=== PATIENT | female | born 1975 | race Caucasian/White ===

== ENCOUNTER 2016-10-29 12:56 | Emergency (ER) | payer SELFPAY ==
[2016-10-29 13:14] LABS: Bilirubin Negative (Negative); Blood, Urine Negative (Negative); Glucose, Urine (Dipstick) Negative (Negative); Ketone, Urine Negative (Negative); Nitrite Negative (Negative); Protein, Urine (Dipstick) Negative (Neg-Trace); Urobilinogen 0.2 mg/dL (0.2-1.0)
[2016-10-29 13:20] LABS: Bacteria/HPF Rare-Few HPF (None Seen); Hyaline Casts/LPF NONE SEEN LPF (0-3 Hyaline); Oval Fat Bodies/HPF None Seen HPF (None Seen); RBC/HPF None Seen HPF (0-3); Renal Epithelial None Seen HPF (0-3); Sperm/HPF None Seen HPF (None Seen); Squamous Epithelial 0-3 HPF (0-3); Transitional Epithelial NONE SEEN HPF (0-3); Trichomonas/HPF Rare HPF (None Seen); Yeast-All Forms None Seen HPF (None Seen)
[2016-10-29 13:57] LABS: ALT (SGPT) 7 U/L (0-55); AST (SGOT) 11 U/L (5-34); Alkaline Phosphatase 59 U/L (40-150); Anion Gap 12 mmol/L (10-20); BUN (Urea Nitrogen) 9 mg/dL (7.0-18.7); Bilirubin, Total 0.2 mg/dL (0.2-1.2); Calc. Creatinine Clearance 0 mL/min (70-130); Calcium 9.5 mg/dL (7.8-10.44); Carbon Dioxide 24 mmol/L (22-29); Chloride 108 mmol/L (98-107); Estimated GFR-MDRD 83; Globulin 3.2 g/dL (2.4-3.5); Lipase 17 U/L (8-78); Protein, Total 7.5 g/dL (6.0-8.3)
[2016-10-29 14:01] LABS: Band 2 % (5-11); Hematocrit 38.7 % (36.0-47.0); Mean Platelet Volume 7.2 fL (7.4-10.4); Neutrophil 62 % (42-75); Red Blood Cell (RBC) Count 4.26 mill/uL (4.20-5.40); White Blood Cell (WBC) Count 6.7 thou/uL (4.8-10.8)
--- NOTE | 2016-10-29 14:14 | PICIS ---
[facility] EMERGENCY RECORD TRIAGE (13:01 KMOR) TRIAGE NOTES: Right sided pain started yesterday and getting worse. (13:01 KMOR) PATIENT: NAME: Jimena Calle, AGE: 41, GENDER: female, : Mon 1975, TIME OF GREET: Sun Oct 29, 2016 12:56, PREFERRED LANGUAGE: Kinyarwanda, ETHNICITY: Not or , HIGH ALERT: HIGH ALERT 3, ECODE BILLING MAP: [facility], SSN: [id number], Zip Code: [address], KG WEIGHT: 68.04, PHONE: , , , PERSON ID: [id number], PAYMENT: SJX Self Pay, PCP: none. (13:01 KMOR) COMPLAINT: Abdominal Pain. (13:01 KMOR) ADMISSION: URGENCY: 3 Urgent, ADMISSION SOURCE: Home, TRANSPORT: CAR, BED: ER -03. (13:01 KMOR) ASSESSMENT: Assessment: A&OX4. RR EVEN AND UNLABORED., Symptoms began yesterday. (13:03 KMOR) PAIN: Patient complains of pain described as, sharp, on a scale 0-10 patient rates pain as 7, Location RLQ. (13:03 KMOR) IMMUNIZATIONS: Flu vaccine not up to date, Tetanus immunization up to date, Pneumococcal vaccine not up to date. (13:03 KMOR) TRIAGE SCREENING: Patient denies suicidal ideation, Patient denies presence of domestic violence. (13:03 KMOR) LMP: Last menstrual period: 10/26/2016. (13:03 KMOR) TREATMENTS IN PROGRESS: Medications Given, NONE. (13:03 KMOR) PROVIDERS: TRIAGE NURSE: Pily Johnson RN. (13:01 KMOR) PREVIOUS VISIT ALLERGIES: No Known Drug Allergies. (13:01 KMOR) No Known Drug Allergies. (13:03 KMOR) KNOWN ALLERGIES No Known Drug Allergies CURRENT MEDICATIONS (13:01 KMOR) None VITAL SIGNS VITAL SIGNS: BP: 116/86, Pulse: 97, Resp: 16, Temp: 97.7 (Oral), Pain: 7, O2 sat: 100 on Room Air, Time: 10/29/2016 13:03. (13:03 KMOR) BP: 120/74, Pulse: 80, Resp: 16, Temp: 97.7, Pain: 5, O2 sat: 100 on ra, Time: 10/29/2016 14:16. (14:16 KMOR) NURSING ASSESSMENT: ABDOMEN (13:20 KMOR) CONSTITUTIONAL: Patient arrives ambulatory, Gait steady, History obtained from patient, Patient appears, in distress due to pain, Patient cooperative, Patient alert, Oriented to person, place and time, Skin warm, Skin dry, Skin normal in color, Mucous membranes pink, Mucous membranes moist, Patient is well-groomed, Patient complains of Abdominal pain, Right sided abdominal pain started today, reports pain radiating to back. reports history of gall stones. &a-1R&a+25V*p+0X*u9222T*c202B*c15G*c2P*p-0X&a-25V&a+1R Name: Jimena Calle : 1975 F41 MedRec: [id number] AcctNum: [id number] Prepared: Gabi Oct 29, 2016 14:31 by Interface Page 1 of 7 pMD [facility] EMERGENCY RECORD PAIN: sharp pain, shooting pain, stabbing pain, to the right upper quadrant, Pain radiates, to the right flank, on a scale 0-10 patient rates pain as 7. ABDOMEN: Abdomen assessment findings include abdomen symmetrical, Abdomen soft, tender, to the right upper quadrant, Bowel sound normal, Associated with nausea, no associated vomiting, no associated diarrhea, no associated constipation, Date of last bowel movement: 10/29/2016. LMP: First day last menstrual period, Last period started on 10/22/2016 13:40. GENITOURINARY FEMALE: no associated urinary complaints. NOTES: Patient tolerated procedure well. NURSING PROCEDURE: DISCHARGE NOTE (14:16 KMOR) DISCHARGE: Patient discharged to home, ambulating without assistance, family driving, accompanied by other family member, Summary of Care printed/ provided, Transition record given to patient, Discharge instructions given to patient, Simple or moderate discharge teaching performed, by SASCHA Nascimento, Discharge instructions and follow up reviewed with patient. Pt ambulatory to discharge desk., Above person(s) verbalized understanding of discharge instructions and follow-up care, Patient instructed not to drive home. BELONGINGS: Belongings remain with patient, Valuables remain with patient. VITAL SIGNS: BP: 120, / 74, Pulse: 80, Resp: 16, Temp: 97.7, Pain: 5, O2 sat: 100, on: ra, Time: 1415. NURSING PROCEDURE: IV PATIENT IDENITIFIER: Patient actively involved in identification process, Patient's identity verified by patient stating name, Patient's identity verified by patient stating date. (13:30 KMOR) IV SITE 1: IV therapy indicated for hydration, IV therapy indicated for medication administration, IV established, to the right antecubital, using a 20 gauge catheter, in one attempt, Saline lock established, Flushed with normal saline (mls): 10cc, Labs drawn at time of placement, labeled in the presence of the patient and sent to lab. (13:30 KMOR) FOLLOW-UP SITE 1: After procedure, 2x3 ensure dressing applied, After procedure, no drainage at IV site, After procedure, no swelling at IV site, After procedure, no redness at IV site. (13:30 KMOR) IV discontinued, due to patient being discharged, catheter intact. (14:12 KMOR) NOTES: Patient tolerated procedure well. (13:30 KMOR) Patient tolerated procedure well. (14:12 KMOR) NURSING PROCEDURE: NURSE NOTES (13:54 KMOR) NURSES NOTES: Patient assisted to bathroom with steady gait. &a-1R&a+25V*p+0X*f9119A*c202B*c15G*c2P*p-0X&a-25V&a+1R Name: Jimena Calle : 1975 F41 MedRec: [id number] AcctNum: [id number] Prepared: aGbi Oct 29, 2016 14:31 by Interface Page 2 of 7 pMD [facility] EMERGENCY RECORD NURSING PROCEDURE: URINE COLLECTION (13:08 KMOR) PATIENT IDENTIFIER: Patient actively involved in identification process, Patient's identity verified by patient stating name, Patient's identity verified by patient stating date. URINE COLLECTION FEMALE: Urine collected by mid-stream clean catch, Output amount (mL) 100ML, urine yellow in color, and clear, Specimen labeled in the presence of the patient and sent to lab, Specimen obtained for culture labeled in the presence of the patient and sent to lab. ORDER DETAILS Order Name: CBC with Differential, Status: Active, Time: 13:21 10/29/2016, User: NATALIE, - Ordered for: MD Perez Jason, - Entered by: MD Perez Jason - Sun Oct 29, 2016 13:21, - Quantity: 1, Order Name: Comprehensive Metabolic Panel, Status: Active, Time: 13:21 10/29/2016, User: NATALIE, - Ordered for: MD Perez Jason, - Entered by: MD Perez Jason - Sun Oct 29, 2016 13:21, - Quantity: 1, Order Name: Lipase, Status: Active, Time: 13:21 10/29/2016, User: NATALIE, - Ordered for: MD Perez Jason, - Entered by: MD Perez Jason - Sun Oct 29, 2016 13:21, - Quantity: 1, Order Name: SALINE LOCK, Status: Done, Time: 13:34 10/29/2016, User: [email or web address], - Ordered for: MD Perez Jason, - Entered by: MD Perez Jason - Sun Oct 29, 2016 13:21, - Quantity: 1, Order Name: Urinalysis w/ Rflx Microscopic, Status: Active, Time: 13:05 10/29/2016, User: [email or web address], - Ordered for: MD Perez Jason, - Entered by: SASCHA Johnson, Pily - Gabi Oct 29, 2016 13:05, - Quantity: 1. MEDICATION ADMINISTRATION SUMMARY Drug Name: morphine injection, Dose Ordered: 4 mg, Route: IV Push, Status: Given, Time: 13:38 10/29/2016, Drug Name: *sodium chloride 0.9 % intravenous, Dose Ordered: 1 L, Route: IV Fluid Infusion, Status: Given, Time: 13:30 10/29/2016, *Additional information available in notes, Detailed record available in Medication Service section. MEDICATION SERVICE morphine injection: Order: morphine injection (morphine sulfate) &a-1R&a+25V*p+0X*g8553T*c202B*c15G*c2P*p-0X&a-25V&a+1R Name: Jimena Calle : 1975 F41 MedRec: [id number] AcctNum: [id number] Prepared: Gabi Oct 29, 2016 14:31 by Interface Page 3 of 7 pMD [facility] EMERGENCY RECORD - Dose: 4 mg : IV Push Ordered by: Acosta Perez MD Entered by: MD Gabi Qureshi Oct 29, 2016 13:34 , Acknowledged by: SASCHA Cruz Oct 29, 2016 13:35 Documented as given by: SASCHA Cruz Oct 29, 2016 13:38 Patient, Medication, Dose, Route and Time verified prior to administration. Amount given: 4MG, IV SITE #1 IVP, initial medication, Slowly, Awake and alert- acceptable, Catheter placement confirmed via flush prior to administration, IV site without signs or symptoms of infiltration during medication administration, No swelling during administration, No drainage during administration, IV flushed after administration, Correct patient, time, route, dose and medication confirmed prior to administration, Patient advised of actions and side-effects prior to administration, Allergies confirmed and medications reviewed prior to administration, Patient in position of comfort, Side rails up, Cart in lowest position. : Follow Up : Response assessment performed, No signs or symptoms of allergic reaction noted, No change in pain, _IV SITE #1:_. (13:56 KMOR) sodium chloride 0.9 % intravenous: Order: sodium chloride 0.9 % intravenous (0.9 % sodium chloride) - Dose: 1 L : IV Fluid Infusion Schedule: Now Notes: (Bolus) Read back and verified Ordered by: Acosta Perez MD Entered by: SASCHA Cruz Oct 29, 2016 13:42 Documented as given by: SASCHA Cruz Oct 29, 2016 13:30 Patient, Medication, Dose, Route and Time verified prior to administration. Amount given: 1000ml, IV SITE #1 IV fluids established for hydration, IV SITE #1 into right antecubital, IV SITE #1 1st bag hung, amount 1 Liter hung, IV SITE #1 bolus of 1000 ml established, via primary tubing, Connections checked prior to administration, Line traced prior to administration, Catheter placement confirmed via flush prior to administration, IV site without signs or symptoms of infiltration during medication administration, No swelling during administration, No drainage during administration, IV flushed after administration, Correct patient, time, route, dose and medication confirmed prior to administration, Patient advised of actions and side-effects prior to administration, Allergies confirmed and medications reviewed prior to administration, Patient in position of comfort, Side rails up, Cart in lowest position, Family at bedside. : Follow Up : Response assessment performed, No signs or symptoms of allergic reaction noted, _IV SITE #1:_, IV fluid infusion discontinued, on SunOct 29, 2016 14:10, 40 minutes, ., Total amount infused: 700ml, IV Discontinued with catheter intact, IV Line flushed after administration. (14:16 KMOR) &a-1R&a+25V*p+0X*w8894X*c202B*c15G*c2P*p-0X&a-25V&a+1R Name: Jimena Calle : 1975 F41 MedRec: [id number] AcctNum: [id number] Prepared: [place] Oct 29, 2016 14:31 by Interface Page 4 of 7 pMD [facility] EMERGENCY RECORD HPI ABDOMINAL PAIN (13:28 [facility]) CHIEF COMPLAINTS: Patient presents for evaluation of abdominal pain. HISTORIAN: History provided by patient, 41F presents with RUQ abdominal pain that has been worsening since last night after she had a hamburger. Denies nausea or vomiting, denies lower abdominal pain or changes in urinary or bowel habits. has a history of gallstones. LMP was a few days earlier. LOCATION FEMALE: Symptoms are localized, most severe in the right upper quadrant. QUALITY: Pain is sharp in nature, described as stabbing. TIME COURSE: Gradual onset of symptoms, Symptoms are worsening. ASSOCIATED WITH FEMALE: No associated symptoms. RELIEVED BY: Patient's condition relieved by deep breaths. EXACERBATED BY: Patient's condition exacerbated by nothing. ROS (13:41 [facility]) CONSTITUTIONAL: Negative constitutional review of systems, Historian denies chills, denies fever. EYES: Negative eye review of systems, Historian denies eye pain, denies vision changes. ENT: Negative ears, nose, throat review of systems, Historian denies rhinorrhea, denies sore throat, denies voice changes. CARDIOVASCULAR: Negative cardiovascular review of systems, Historian denies chest pain, denies palpitations. RESPIRATORY: Negative respiratory review of systems, Historian denies cough, denies shortness of breath. GI: Historian reports abdominal pain. GENITOURINARY FEMALE: Negative genitourinary review of systems, Historian denies dysuria, denies frequency. MUSCULOSKELETAL: Negative musculoskeletal review of systems, Historian denies back pain, denies fall, denies injury. SKIN: Negative skin review of systems, Historian denies rash, denies skin changes. NEUROLOGIC: Negative neurologic review of systems, Historian denies headache, denies mental status changes, denies paralysis, denies paresthesias, denies sensory changes. HEMO/LYMPHATIC: Normal hematologic/lymphatic system review, Historian denies abnormal blood clotting. ALLERGIC/IMMUNOLOGIC: Normal allergy/immunologic system review, Historian denies frequent infections. PAST MEDICAL HISTORY (13:03 [facility]) MEDICAL HISTORY: Flu vaccine not up to date, Tetanus immunization up to date, gallstones. FEMALE SURGICAL HISTORY: Patient has no surgical history. PSYCHIATRIC HISTORY: Psychiatric history includes, anxiety, Previous psychiatric history: "MAJOR DEPRESSIVE DISORDER", Notes: POST DEPRESSION. &a-1R&a+25V*p+0X*z7271C*c202B*c15G*c2P*p-0X&a-25V&a+1R Name: Jimena Calle : 1975 F41 MedRec: [id number] AcctNum: [id number] Prepared: Gabi Oct 29, 2016 14:31 by Interface Page 5 of 7 pMD [facility] EMERGENCY RECORD SOCIAL HISTORY: Patient denies alcohol use, Patient denies drug use, Patient currently uses tobacco, smokes cigarettes, daily, Patient smokes 1/2 packs per day, . FAMILY HISTORY: Family history is non-contributory to this case. PHYSICAL EXAM (13:41 [facility]) CONSTITUTIONAL: Vital signs reviewed, Patient afebrile, Pulse normal, Blood pressure normal, Respiratory rate normal, Patient appears non toxic, Patient appears pain free, Patient alert and oriented to person, place and time. HEAD: Head exam normal, Head exam included findings of head atraumatic, normocephalic. EYES: Eye exam normal, Eye exam included findings of eyelids normal to inspection, Pupils equally round and reactive to light, Extraocular muscles intact, no nystagmus. ENT: ENT exam normal, Ear exam normal, external ear normal, tympanic membranes normal, no bleeding, Pharynx exam normal, Uvula exam normal, Tonsil exam normal, Mouth exam normal, mucous membranes moist, teeth normal. NECK: Neck exam normal, Neck exam included findings of normal range of motion, Trachea midline, no meningeal signs, no cervical adenopathy, no tenderness. RESPIRATORY CHEST: Respiratory and chest exam normal, Respiratory exam included findings of no respiratory distress, Breath sounds clear. CARDIOVASCULAR: Cardiovascular assessment normal, Cardiovascular exam included findings of heart rate regular rate and rhythm, Heart sounds normal. ABDOMEN FEMALE: Abdominal exam included findings of abdomen tender, to the right upper quadrant, moderate intensity. BACK: Back exam normal, Back exam included findings of normal inspection, range of motion normal, no tenderness. UPPER EXTREMITY: Upper extremity exam normal, Upper extremity exam included findings of inspection normal, Range of motion normal, Motor strength normal, Sensation intact, Radial pulse normal. LOWER EXTREMITY: Lower extremity exam normal, Lower extremity exam included findings of inspection normal, Range of motion normal, Motor strength normal, Sensation intact, Posterior tibial pulse normal, Pedal pulse normal. NEURO: Neuro exam normal, Neuro exam findings include patient oriented to person, place and time, Speech normal, Gait normal, Cranial nerves intact, no focal motor deficits, no focal sensory deficits. SKIN: Skin exam normal, Skin exam included findings of skin warm, dry, and normal in color, no rash. PSYCHIATRIC: Psychiatric exam normal, Normal affect. EVENTS &a-1R&a+25V*p+0X*u1328G*c202B*c15G*c2P*p-0X&a-25V&a+1R Name: Jimena Calle : 1975 F41 MedRec: [id number] AcctNum: [id number] Prepared: Gabi Oct 29, 2016 14:31 by Interface Page 6 of 7 pMD [facility] EMERGENCY RECORD TRANSFER: Triage to Emergency Emergency Room -03. (Gabi Oct 29, 2016 13:01 KMOR) Removed from Emergency Emergency Room -03. (14:21 KMOR) [facility] TEXT: the patient presented with findings concerning for biliary colic. Considered other diagnoses such as pancreatitis, cholecystitis, choledocolithiasis, bowel obstruction, and appendicitis, but based on history of presenting illness, physical exam, bedside ultrasound results and laboratory studies, I believe biliary colic is the most likely etiology for the patient's symptoms. Pain is currently controlled and the patient is hemodynamically stable, and appropriate for outpatient follow up and management. If symptoms return or worsen, they should return to the ED for re-evaluation. PATIENT STATUS: Patient has improved since arrival to emergency department. PATIENT PLAN: The patient will be discharged. DATA REVIEWED: Lab data reviewed. PROBLEM LIST No recorded problems DIAGNOSIS (14:07 [facility]) FINAL: PRIMARY: biliary colic. DISPOSITION PATIENT: Disposition Type: Discharge, Disposition: [facility]. [facility] Patient left the department. (14:21 KMOR) INSTRUCTION (14:08 [facility]) DISCHARGE: BILIARY COLIC WITH GALLSTONE (CONFIRMED). SPECIAL: follow up with your primary doctor, and make an appointment with a general surgeon. Avoid large fatty meals. Drink lots of water. PRESCRIPTION No recorded prescriptions IMAGING (14:18 KMOR) *DISCHARGE INSTRUCTIONS RECEIPT: Image captured from scanner. *SUPPLY CHARGE SHEET: Image captured from scanner. ADMIN DIGITAL SIGNATURE: MD Perez Jason. (14:09 [facility]) SASCHA Johnson, Pily. (14:21 KMOR) Patricia: SEBASTIÁN=MD Perez Jason KMOR=SASCHA Johnson Krista &a-1R&a+25V*p+0X*c7329I*c202B*c15G*c2P*p-0X&a-25V&a+1R Name: Jimena Calle : 1975 F41 MedRec: [id number] AcctNum: [id number] Prepared: Gabi Oct 29, 2016 14:31 by Interface Page 7 of 7 pMD MTDD
--- NOTE | 2016-10-29 14:15 | ERRECORD ---
[facility] EMERGENCY RECORD HPI ABDOMINAL PAIN (13:28 [facility]) CHIEF COMPLAINTS: Patient presents for evaluation of abdominal pain. HISTORIAN: History provided by patient, 41F presents with RUQ abdominal pain that has been worsening since last night after she had a hamburger. Denies nausea or vomiting, denies lower abdominal pain or changes in urinary or bowel habits. has a history of gallstones. LMP was a few days earlier. LOCATION FEMALE: Symptoms are localized, most severe in the right upper quadrant. QUALITY: Pain is sharp in nature, described as stabbing. TIME COURSE: Gradual onset of symptoms, Symptoms are worsening. ASSOCIATED WITH FEMALE: No associated symptoms. RELIEVED BY: Patient's condition relieved by deep breaths. EXACERBATED BY: Patient's condition exacerbated by nothing. ROS (13:41 [facility]) CONSTITUTIONAL: Negative constitutional review of systems, Historian denies chills, denies fever. EYES: Negative eye review of systems, Historian denies eye pain, denies vision changes. ENT: Negative ears, nose, throat review of systems, Historian denies rhinorrhea, denies sore throat, denies voice changes. CARDIOVASCULAR: Negative cardiovascular review of systems, Historian denies chest pain, denies palpitations. RESPIRATORY: Negative respiratory review of systems, Historian denies cough, denies shortness of breath. GI: Historian reports abdominal pain. GENITOURINARY FEMALE: Negative genitourinary review of systems, Historian denies dysuria, denies frequency. MUSCULOSKELETAL: Negative musculoskeletal review of systems, Historian denies back pain, denies fall, denies injury. SKIN: Negative skin review of systems, Historian denies rash, denies skin changes. NEUROLOGIC: Negative neurologic review of systems, Historian denies headache, denies mental status changes, denies paralysis, denies paresthesias, denies sensory changes. HEMO/LYMPHATIC: Normal hematologic/lymphatic system review, Historian denies abnormal blood clotting. ALLERGIC/IMMUNOLOGIC: Normal allergy/immunologic system review, Historian denies frequent infections. PAST MEDICAL HISTORY (13:03 [facility]) MEDICAL HISTORY: Flu vaccine not up to date, Tetanus immunization up to date, gallstones. FEMALE SURGICAL HISTORY: Patient has no surgical history. PSYCHIATRIC HISTORY: Psychiatric history includes, anxiety, Previous psychiatric history: "MAJOR DEPRESSIVE DISORDER", Notes: POST DEPRESSION. &a-1R&a+25V*p+0X*k0112W*c202B*c15G*c2P*p-0X&a-25V&a+1R Name: Jimena Calle : 1975 F41 MedRec: [id number] AcctNum: [id number] Prepared: Gabi Oct 29, 2016 14:25 by Interface Page [address] [facility] EMERGENCY RECORD SOCIAL HISTORY: Patient denies alcohol use, Patient denies drug use, Patient currently uses tobacco, smokes cigarettes, daily, Patient smokes 1/2 packs per day, . FAMILY HISTORY: Family history is non-contributory to this case. KNOWN ALLERGIES No Known Drug Allergies CURRENT MEDICATIONS (13:01 [facility]) None VITAL SIGNS VITAL SIGNS: BP: 116/86, Pulse: 97, Resp: 16, Temp: 97.7 (Oral), Pain: 7, O2 sat: 100 on Room Air, Time: 10/29/2016 13:03. (13:03 [facility]) BP: 120/74, Pulse: 80, Resp: 16, Temp: 97.7, Pain: 5, O2 sat: 100 on ra, Time: 10/29/2016 14:16. (14:16 [facility]) PHYSICAL EXAM (13:41 [facility]) CONSTITUTIONAL: Vital signs reviewed, Patient afebrile, Pulse normal, Blood pressure normal, Respiratory rate normal, Patient appears non toxic, Patient appears pain free, Patient alert and oriented to person, place and time. HEAD: Head exam normal, Head exam included findings of head atraumatic, normocephalic. EYES: Eye exam normal, Eye exam included findings of eyelids normal to inspection, Pupils equally round and reactive to light, Extraocular muscles intact, no nystagmus. ENT: ENT exam normal, Ear exam normal, external ear normal, tympanic membranes normal, no bleeding, Pharynx exam normal, Uvula exam normal, Tonsil exam normal, Mouth exam normal, mucous membranes moist, teeth normal. NECK: Neck exam normal, Neck exam included findings of normal range of motion, Trachea midline, no meningeal signs, no cervical adenopathy, no tenderness. RESPIRATORY CHEST: Respiratory and chest exam normal, Respiratory exam included findings of no respiratory distress, Breath sounds clear. CARDIOVASCULAR: Cardiovascular assessment normal, Cardiovascular exam included findings of heart rate regular rate and rhythm, Heart sounds normal. ABDOMEN FEMALE: Abdominal exam included findings of abdomen tender, to the right upper quadrant, moderate intensity. BACK: Back exam normal, Back exam included findings of normal inspection, range of motion normal, no tenderness. UPPER EXTREMITY: Upper extremity exam normal, Upper extremity exam included findings of inspection normal, Range of motion normal, Motor strength normal, Sensation intact, Radial pulse normal. LOWER EXTREMITY: Lower extremity exam normal, Lower extremity &a-1R&a+25V*p+0X*l2563T*c202B*c15G*c2P*p-0X&a-25V&a+1R Name: Jimena Calle : 1975 F41 MedRec: [id number] AcctNum: [id number] Prepared: Gabi Oct 29, 2016 14:25 by Interface Page [address] [facility] EMERGENCY RECORD exam included findings of inspection normal, Range of motion normal, Motor strength normal, Sensation intact, Posterior tibial pulse normal, Pedal pulse normal. NEURO: Neuro exam normal, Neuro exam findings include patient oriented to person, place and time, Speech normal, Gait normal, Cranial nerves intact, no focal motor deficits, no focal sensory deficits. SKIN: Skin exam normal, Skin exam included findings of skin warm, dry, and normal in color, no rash. PSYCHIATRIC: Psychiatric exam normal, Normal affect. MEDICATION ADMINISTRATION SUMMARY Drug Name: morphine injection, Dose Ordered: 4 mg, Route: IV Push, Status: Given, Time: 13:38 10/29/2016, Drug Name: *sodium chloride 0.9 % intravenous, Dose Ordered: 1 L, Route: IV Fluid Infusion, Status: Given, Time: 13:30 10/29/2016, *Additional information available in notes, Detailed record available in Medication Service section. DOCTOR NOTES (14:08 [facility]) TEXT: the patient presented with findings concerning for biliary colic. Considered other diagnoses such as pancreatitis, cholecystitis, choledocolithiasis, bowel obstruction, and appendicitis, but based on history of presenting illness, physical exam, bedside ultrasound results and laboratory studies, I believe biliary colic is the most likely etiology for the patient's symptoms. Pain is currently controlled and the patient is hemodynamically stable, and appropriate for outpatient follow up and management. If symptoms return or worsen, they should return to the ED for re-evaluation. PATIENT STATUS: Patient has improved since arrival to emergency department. PATIENT PLAN: The patient will be discharged. DATA REVIEWED: Lab data reviewed. PROBLEM LIST No recorded problems DIAGNOSIS (14:07 [facility]) FINAL: PRIMARY: biliary colic. PRESCRIPTION No recorded prescriptions DISPOSITION PATIENT: Disposition Type: Discharge, Disposition: *Discharge Home. (14:07 [facility]) Patient left the department. (14:21 [facility]) Patricia: &a-1R&a+25V*p+0X*[id number]*c202B*c15G*c2P*p-0X&a-25V&a+1R Name: Jimena Calle : 1975 11 MedRec: [id number] AcctNum: [id number] Prepared: Gabi Oct 29, 2016 14:25 by Interface Page [address] [facility] EMERGENCY RECORD JJAC=MD Ana, Acosta [facility]=SASCHA Johnson, Pily &a-1R&a+25V*p+0X*[id number]*c202B*c15G*c2P*p-0X&a-25V&a+1R Name: Jimena Calle : 1975 F41 MedRec: [id number] AcctNum: [id number] Prepared: Gabi Oct 29, 2016 14:25 by Interface Page 4 of 4 pMD [facility]D
== END 2016-10-29 14:16 | disposition home or self-care (01) ==
LOC: BURERS 12:56
DX: K80.50 Calculus of bile duct without cholangitis or cholecystitis without obstruction (principal); F41.9 Anxiety disorder, unspecified; F17.210 Nicotine dependence, cigarettes, uncomplicated
CPT/HCPCS: 80053; 81003; 81015; 83690; 85025; 96361; 96374; J2270

== ENCOUNTER 2016-12-01 11:20 | Emergency (ER) | payer SELFPAY ==
[2016-12-01] MEDS ORDERED: Ketorolac Tromethamine 60 MG/2 ML VIAL ONE (11:56)
[2016-12-01] MEDS ORDERED: Sulfameth/Trimethoprim DS 800-160mg TAB ONE (11:56)
[2016-12-01 11:57] LABS: Bilirubin Negative (Negative); Blood, Urine Moderate (Negative); Glucose, Urine (Dipstick) Negative (Negative); Ketone, Urine Negative (Negative); Nitrite Positive (Negative); Protein, Urine (Dipstick) > or equal to 300 mg/dL (Neg-Trace)
[2016-12-01] MEDS ORDERED: Sulfameth/Trimethoprim DS 800-160mg TAB PO SCH (12:00)
[2016-12-01] MEDS ORDERED: Ketorolac Tromethamine 60 MG/2 ML VIAL IM SCH (12:00)
[2016-12-01 12:02] LABS: Squamous Epithelial 0-3 HPF (0-3); Transitional Epithelial 0-3 HPF (0-3); WBC/HPF 21-50 HPF (0-3)
[2016-12-01 12:03] LABS: Bacteria/HPF 2+ HPF (None Seen)
== END 2016-12-01 12:16 | disposition home or self-care (01) ==
LOC: BURERS 11:20
DX: N12 Tubulo-interstitial nephritis, not specified as acute or chronic (principal); F41.9 Anxiety disorder, unspecified; F17.210 Nicotine dependence, cigarettes, uncomplicated
CPT/HCPCS: 81003; 81015; 87077; 87086; 87186; 96372; J1885

== ENCOUNTER 2018-12-25 18:19 | Emergency (ER) | payer SELFPAY ==
[2018-12-25] MEDS ORDERED: diphenhydrAMINE 12.5 MG/5 ML UDCUP ONE (18:52)
[2018-12-25] MEDS ORDERED: Ketorolac Tromethamine 30 MG/ML VIAL ONE (18:52)
[2018-12-25] MEDS ORDERED: Metoclopramide HCl 10 MG/2 ML VIAL ONE (18:52)
[2018-12-25] MEDS ORDERED: diphenhydrAMINE 50 MG/ML VIAL ONE (18:54)
== END 2018-12-25 19:52 | disposition home or self-care (01) ==
LOC: BURERS 18:19
DX: G43.909 Migraine, unspecified, not intractable, without status migrainosus (principal); J44.9 Chronic obstructive pulmonary disease, unspecified; F32.9 Major depressive disorder, single episode, unspecified; Z87.891 Personal history of nicotine dependence
CPT/HCPCS: 96361; 96374; 96375; J1200; J1885; J2765; Q0163

== ENCOUNTER 2022-02-01 18:13 | Emergency (ER) | payer BC, OTHER ==
[2022-02-01] MEDS ORDERED: predniSONE 20 MG TAB ONE (18:49)
[2022-02-01] MEDS ORDERED: AMOXicillin 250 MG CAP ONE (18:51)
== END 2022-02-01 19:15 | disposition home or self-care (01) ==
LOC: BURERS 18:13
DX: J20.9 Acute bronchitis, unspecified (principal); J44.0 Chronic obstructive pulmonary disease with (acute) lower respiratory infection; Z87.891 Personal history of nicotine dependence
CPT/HCPCS: 94640; J7512; J7620

== ENCOUNTER 2022-09-09 08:47 | Emergency (ER) | payer BC, OTHER ==
[2022-09-09 09:18] LABS: Bilirubin Negative (Negative); Blood, Urine Negative (Negative); Clarity Slightly Cloudy (Clear); Glucose, Urine (Dipstick) Negative (Negative); Ketone, Urine Trace mg/dL (Negative); Leukocyte Small (Negative); Nitrite Negative (Negative); Protein, Urine (Dipstick) Negative (Neg-Trace); Specific Gravity, Urine 1.025 (1.005-1.030); Urobilinogen 0.2 mg/dL (Less than 2); pH, Urine 5.5 (5.0-9.0)
[2022-09-09 09:20] LABS: Pregnancy Test - Urine (BHCG) Negative (Negative); Specific Gravity 1.025 (1.002-1.036)
[2022-09-09 09:21] LABS: Pregu Control Background? CLEAR/WHITE (CLR/WHITE); Pregu Control Bar Appear? YES (CONTROL BAR)
[2022-09-09 09:24] LABS: RBC/HPF 0-3 HPF (0-3)
[2022-09-09 09:25] LABS: Bacteria/HPF Rare-Few HPF (None Seen)
[2022-09-09 09:30] LABS: Trichomonas/HPF Rare HPF (None Seen)
== END 2022-09-09 10:25 | disposition home or self-care (01) ==
LOC: BURERS 08:47
DX: N30.01 Acute cystitis with hematuria (principal); J44.9 Chronic obstructive pulmonary disease, unspecified; Z87.891 Personal history of nicotine dependence
CPT/HCPCS: 81003; 81015; 81025; 87086; 99283

== ENCOUNTER 2023-01-17 14:59 | Emergency (ER) | payer OTHER ==
[2023-01-17] MEDS ORDERED: Ipratropium/Albuterol 3 ML NEB ONE (15:13)
[2023-01-17] MEDS ORDERED: predniSONE 20 MG TAB ONE (15:24)
[2023-01-17] MEDS ORDERED: Ipratropium Bromide 2.5 ml Neb ONE (15:47)
== END 2023-01-17 17:42 | disposition home or self-care (01) ==
LOC: BURERS 14:59
DX: J45.901 Unspecified asthma with (acute) exacerbation (principal); K21.9 Gastro-esophageal reflux disease without esophagitis; F17.210 Nicotine dependence, cigarettes, uncomplicated
CPT/HCPCS: 94640; J7512; J7611; J7620

== ENCOUNTER 2023-01-29 18:57 | Emergency (ER) | payer OTHER ==
[2023-01-29] MEDS ORDERED: Lidocaine 2% 6 ML SYR ONE ×2 (19:16→19:40)
[2023-01-29] MEDS ORDERED: AMOXicillin 250 MG CAP ONE (20:02)
== END 2023-01-29 20:05 | disposition home or self-care (01) ==
LOC: BURERS 18:57
DX: K04.7 Periapical abscess without sinus (principal); K02.9 Dental caries, unspecified; K21.9 Gastro-esophageal reflux disease without esophagitis; F17.210 Nicotine dependence, cigarettes, uncomplicated; J45.909 Unspecified asthma, uncomplicated; Z79.899 Other long term (current) drug therapy
CPT/HCPCS: 41800

== ENCOUNTER 2024-09-05 09:50 | Emergency (ER) | payer BC | END 2024-09-05 10:45 | disposition home or self-care (01) | LOC: BURERS 09:50 | DX: M25.562 Pain in left knee (principal); F17.210 Nicotine dependence, cigarettes, uncomplicated | CPT/HCPCS: 99283 ==

== ENCOUNTER 2025-05-14 05:21 | Emergency (ER) | payer BC ==
[2025-05-14] MEDS ORDERED: predniSONE 20 MG TAB ONE (06:21)
== END 2025-05-14 06:23 | disposition home or self-care (01) ==
LOC: BURERS 05:21
DX: B34.9 Viral infection, unspecified (principal)
CPT/HCPCS: 87081; 87400; 87426; 87430; 99283; J7512